=== PATIENT | female | born 1990 | race Caucasian/White ===

== ENCOUNTER 2019-02-05 06:10 | Inpatient (IN) | payer OTHER ==
[~2019-02-05] VITALS: Ht 160 cm; Wt 69.9 kg
[2019-02-05 06:39] VITALS: BP 119/71; PULSE 74; RESP 18
[2019-02-05] MEDS ORDERED: FERR134T PO (06:41)
[2019-02-05] MEDS ORDERED: CEFAZOLIN 2 GM/50 ML (PMX) 50 ML IVPB SCH (07:00)
[2019-02-05] MEDS ORDERED: OXYTOCIN 30 UNITS/LR 500 ML IV PRN ×2 (07:00→10:00)
[2019-02-05] MEDS ORDERED: OXYTOCIN 30 UNITS/LR 500 ML IV SCH ×2 (07:00→09:32)
[2019-02-05] MEDS ORDERED: CARBOPROST 250 MCG INJ IM PRN ×2 (07:00→10:00)
[2019-02-05] MEDS ORDERED: MISOPROSTOL 200 MCG TAB PR PRN ×2 (07:00→10:00)
[2019-02-05] MEDS ORDERED: METHYLERGONOVINE 0.2 MG INJ IM PRN ×2 (07:00→10:00)
[2019-02-05] MEDS: LACTATED RINGER'S 1,000 ML IV SCH ×2 (07:18→14:45)
--- NOTE | 2019-02-05 07:31 | PREAC ---
Date/Time of Note Date/Time of Note DATE: 02/05/19 TIME: 07:31 Anesthesia Eval and Record Evaluation Time Pre-Procedure Interview DATE: 02/05/19 TIME: 07:31 Age 28 Sex female NPO: 8 hrs Preoperative diagnosis Planned procedure repeat c/s Past Medical History Past Medical History: Includes GI: Obesity Surgery & Anesthesia Issues No known issue Meds Anticoagulation: No Beta Luis A within 24 hr: No Reason Beta Luis A not given: Pt. not on B-Luis A Reported Medications Ferrous Sulfate (Iron) 134 Mg Tablet, 134 MG PO DAILY, TAB 02/05/19 Current Medications Lactated Ringer's 1,000 ml @ 125 mls/hr Q8H IV Last administered on 02/05/19at 07:18; Admin Dose 125 MLS/HR; Start 02/05/19 at 06:45 Cefazolin Sodium/ Dextrose 50 ml @ 100 mls/hr ONCE IVPB ; Start 02/05/19 at 07:00 Oxytocin/Lactated Ringer's 500 ml @ 125 mls/hr POST IV ; Start 02/05/19 at 07:00 Oxytocin/Lactated Ringer's 500 ml @ 0 mls/hr ONCE PRN IV .VAGINAL BLEEDING; Start 02/05/19 at 07:00 Methylergonovine Maleate (Methergine) 0.2 mg ONCE PRN IM .VAGINAL BLEEDING; Start 02/05/19 at 07:00 Carboprost Tromethamine (Hemabate) 250 mcg ONCE PRN IM .VAGINAL BLEEDING; Start 02/05/19 at 07:00 Misoprostol (Cytotec) 1,000 mcg ONCE PRN AR .VAGINAL BLEEDING; Start 02/05/19 at 07:00 Meds reviewed: Yes Allergies Coded Allergies: No Known Allergy (Unverified , 02/05/19) Allergies Reviewed: Yes Labs/Studies Labs Reviewed: Reviewed by anesthesiologist Result Diagram: 02/05/19 0649 Laboratory Tests 02/05/19 06:49 test: Positive Pre-procedure Exam Last vitals Vital Signs Date Temp Pulse Resp B/P (MAP) Pulse Ox O2 O2 Flow FiO2 Time Delivery Rate 02/05/19 98.2 74 18 119/71 Room Air 06:39 (87) Airway: Adequate mouth opening, Adequate thyromental dist Mallampati: Mallampati II Teeth: Normal Lung: Normal Heart: Normal ASA Physical Status ASA physical status: 2 Emergency: None Planned Anesthetic Neuraxial: Spinal Planned Pain Management Sub-arachniod narcotics Pre-operative Attestations Prior to commencing anesthesia and surgery, the patient was re-evaluated, there was verification of: *The patient's identity *The results of appropriate recent lab work and preoperative vital signs *The above evaluation not changing prior to induction *Anesthetic plan, risk benefits, alternative and complications discussed with patient/family; questions answered; patient/family understands, accepts and wishes to proceed. SEAN GRANADO Feb 05, 2019 07:31
[2019-02-05] MEDS ORDERED: morphine SULFATE/PF (10 MG/10 ML) INJ ONE (07:45)
[2019-02-05] MEDS ORDERED: PHENYLephrine (100 MCG/ML) 10ML SYG ONE (07:54)
--- NOTE | 2019-02-05 07:54 | PREOPHP ---
DATE OF ADMISSION: 02/05/2019 HISTORY OF PRESENT ILLNESS: This is a 28-year-old lady, 2, para 1, EDC 02/12/2019 at 39 week s , admitted to labor and delivery area for repeat . She has one previous and she desires to have repeat . She had care in my [place] office and the prenat al care was uneventful. PAST PERSONAL HISTORY: No history of diabetes, TB, asthma. ALLERGIES: NO ALLERGIES. SOCIAL HISTORY: The patient does not smoke. She does not drink. MEDICATIONS: She does not take any drugs except her iron and vitamins. GYNECOLOGIC HISTORY: She had menarche at the age of 17, every 28 days interval, 3 to 4 days' duratio n, and moderate in amount. FAMILY HISTORY: Noncontributory. OBSTETRICAL HISTORY: She is 2, para 1. Her first delivery was in 2016 by . REVIEW OF SYSTEMS: CARDIOVASCULAR: No chest pains. RESPIRATORY: No cough. GASTROINTESTINAL: No diarrhea, no vomiting. GENITOURINARY: No dysuria. PHYSICAL EXAMINATION: GENERAL: Reveals a conscious, coherent lady and in no acute distress. VITAL SIGNS: Her blood pressure 110/20/70, pulse rate 80 per minute, respirations 16 per minute. BREASTS, HEART AND LUNGS: Within normal limits. ABDOMEN: Term size uterus. Estimated weight about 7 pounds. Fundic height 37 cm. hear t tones 140 per minute. PELVIC: Revealed the cervix to be closed, station floating in cephalic presentation with the bag of water intact. EXTREMITIES: No pedal edema. ADMITTING DIAGNOSIS: 39 weeks' intrauterine , with one previous section. The marlene ent discharged to have a repeat . The procedures were explained to the patient and she unde rstood everything totally. The risks, benefits, and alternatives were discussed with her as well. Dictated By: FELIX WALDEN MD NS/NTS Conf#: [id number] DID#: [id number] CC: FELIX WALDEN MD;*EndCC*
[2019-02-05] MEDS ORDERED: DIPHENHYDRAMINE 50 MG INJ IV PRN ×2 (08:00)
[2019-02-05] MEDS ORDERED: HYDROmorphONE 1 MG/5 ML IV SYRINGE IV PRN ×3 (08:00)
[2019-02-05] MEDS ORDERED: HYDROmorphONE 0.5 MG/0.5 ML SYG IV PRN ×2 (08:00)
[2019-02-05] MEDS ORDERED: METOCLOPRAMIDE 10 MG INJ IV PRN (08:00)
[2019-02-05] MEDS ORDERED: KETOROLAC 30 MG INJ IV PRN (08:00)
[2019-02-05] MEDS ORDERED: ONDANSETRON 4 MG INJ IV PRN ×2 (08:00)
[2019-02-05] MEDS ORDERED: FENTAnyl 50 MCG/ML VIAL IV PRN ×2 (08:00)
[2019-02-05] MEDS ORDERED: NALOXONE (0.4 MG/ML) INJ IV PRN (08:00)
[2019-02-05] MEDS ORDERED: ALBUTEROL 0.083% (NEB) 2.5 MG/3 ML AMP HHN PRN (08:00)
[2019-02-05] MEDS ORDERED: LACTATED RINGER'S 1,000 ML IV SCH (09:32)
--- NOTE | 2019-02-05 09:32 | OPPN ---
Date/Time of Note Date/Time of Note DATE: 02/05/19 TIME: 09:31 Operative Report Planned Procedure Procedure date Feb 05, 2019 Procedure(s) REPEAT CSECTION Performed by see signature line Equal Opportunity Specialist: MARCO MERLOS MD 2nd Equal Opportunity Specialist none Pre-procedure diagnosis 39 WEEKS IUP WITH PREVIOUS CSECTION [id number] Anesthesia Type: [id number] spinal Post-Procedure Post-procedure diagnosis 39 WEEKS IUP WITH PREVIOUS CSECTION Findings Live Baby GIRL, Apgars 9and 9, weight 7LBS 3180 GRAMS Estimated Blood Loss: 500 - 600 mls Specimen(s) none Grafts/Implant(s) PLACENTA Complication(s) none FELIX WALDEN MD Feb 05, 2019 09:32
[2019-02-05] MEDS ORDERED: LANOLIN HPA 1 PKT TOP PRN (10:00)
[2019-02-05] MEDS ORDERED: METHYLERGONOVINE 0.2 MG TAB PO PRN (10:00)
[2019-02-05] MEDS: KETOROLAC 30 MG INJ IV PRN ×2 (11:06→18:01)
--- NOTE | 2019-02-05 11:06 | PAC ---
Date/Time of Note Date/Time of Note DATE: 02/05/19 TIME: 11:06 Post-Anesthesia Notes Post-Anesthesia Note Last documented vital signs Vital Signs Date Temp Pulse Resp B/P (MAP) Pulse Ox O2 O2 Flow FiO2 Time Delivery Rate 02/05/19 98.2 74 18 119/71 Room Air 06:39 (87) Activity: WNL Respiratory function: WNL Cardiovascular function: WNL Mental status: Baseline Pain reasonably controlled: Yes Hydration appropriate: Yes Nausea/Vomiting absent: Yes SEAN GRANADO Feb 05, 2019 11:06
[2019-02-05 14:50] VITALS: BP 120/60; PULSE 72; RESP 16
[2019-02-05 15:20] VITALS: BP 113/65; PULSE 90; RESP 16
[2019-02-05 19:40] VITALS: BP 101/57; PULSE 76; RESP 18
[2019-02-05] MEDS: SENNA/DOCUSATE NA (8.6MG/50MG) TAB PO SCH (21:36)
[2019-02-06] MEDS: KETOROLAC 30 MG INJ IV PRN ×2 (00:04→06:12)
[2019-02-06 00:10] VITALS: BP 112/62; PULSE 72; RESP 18
[2019-02-06] MEDS: LACTATED RINGER'S 1,000 ML IV SCH ×2 (03:44→06:45)
[2019-02-06 03:50] VITALS: BP 107/57; PULSE 83; RESP 18
[2019-02-06 08:30] VITALS: BP 105/57; PULSE 87; RESP 18
[2019-02-06] MEDS: HYDROCODONE/APAP (5/325) TAB PO PRN ×4 (09:00→21:08)
[2019-02-06] MEDS: SENNA/DOCUSATE NA (8.6MG/50MG) TAB PO SCH ×2 (09:01→20:18)
[2019-02-06] MEDS: IBUPROFEN 800 MG TAB PO PRN (13:02)
[2019-02-06 15:50] VITALS: BP 99/61; PULSE 86; RESP 16
[2019-02-06 20:18] VITALS: BP 98/57; PULSE 97; RESP 18
--- NOTE | 2019-02-06 20:37 | PN ---
Date/Time of Note Date/Time of Note DATE: 02/06/19 TIME: 20:35 Assessment/Plan VTE Prophylaxis Risk score (from Nsg)>0 risk: 3 SCD applied (from Nsg): Yes Pharmacological prophylaxis: NA/contraindicated Pharm contraindication: low risk/ambulating Lines/Catheters IV Catheter Type (from Nrs): Peripheral IV Assessment/Plan Assessment/Plan POSTCSECTION DAY 1 ORDERED ADVANCE DIET TOLERATED CBC ON 3RD POSTOP DAY Result Diagram: 02/06/19 0706 02/06/19 0706 Results 24hrs Laboratory Tests Test 02/06/19 06:19 02/06/19 07:06 Lab Scanned Report REFERENCE LAB White Blood Count 5.7 Red Blood Count 3.45 L Hemoglobin 10.5 L Hematocrit 32.0 L Mean Corpuscular Volume 92.8 Mean Corpuscular Hemoglobin 30.4 Mean Corpuscular Hemoglobin Concent 32.8 Red Cell Distribution Width 13.5 Platelet Count 145 # Mean Platelet Volume 10.0 Immature Granulocytes % 0.400 Neutrophils % 71.9 Lymphocytes % 20.8 Monocytes % 6.3 Eosinophils % 0.4 Basophils % 0.2 Nucleated Red Blood Cells % 0.0 Immature Granulocytes # 0.020 Neutrophils # 4.1 Lymphocytes # 1.2 Monocytes # 0.4 Eosinophils # 0.0 Basophils # 0.0 Nucleated Red Blood Cells # 0.0 Sodium Level 137 Potassium Level 3.7 Chloride Level 109 Carbon Dioxide Level 22 Anion Gap 6 Blood Urea Nitrogen 3 L Creatinine 0.33 L Est Glomerular Filtrat Rate mL/min > 60 Glucose Level 64 L Calcium Level 8.4 Subjective 24 Hr Interval Summary Free Text/Dictation POST CSECTION DAY 1 COMPLAIN OF INCISIONAL PAINS GOOD URINE OUTPUT PASSING GAS PER RECTUM NO BOWEL MOVEMENT YET Exam/Review of Systems Exam Vitals Vital Signs Date Temp Pulse Resp B/P (MAP) Pulse Ox O2 O2 Flow FiO2 Time Delivery Rate 02/06/19 98.6 86 16 99/61 (74) 15:50 02/06/19 Room Air 08:30 02/06/19 97 03:50 Intake and Output 02/05/19 02/05/19 02/06/19 1515:00 23:00 07:00 IntakeIntake Total 1500 ml 930 ml 800 ml OutputOutput Total 2000 ml 900 ml 900 ml BalanceBalance -500 ml 30 ml -100 ml Exam VITAL SIGNS STABLE: YES AFEBRILE: YES BREAST NOT ENGORGED, NON-TENDER, NO APPRECIABLE MASS: YES LUNGS CLEAR, NO RALES, WHEEZES, RHONCHI: YES SINUS RHYTHM WITHOUT MURMUR: YES ABDOMEN: NON-TENDER FUNDUS: BELOW UMBILICUS BOWEL SOUNDS: PRESENT UTERUS: FIRM INCISION (CLEAN, DRY, AND INTACT): YES LOCHIA: LIGHT DEEP TENDON REFLEXES: 0 EXTREMITIES: NO CALF TENDERNESS EDEMA SCALE: NONE Results Results 24hrs Laboratory Tests Test 02/06/19 06:19 02/06/19 07:06 Lab Scanned Report REFERENCE LAB White Blood Count 5.7 Red Blood Count 3.45 L Hemoglobin 10.5 L Hematocrit 32.0 L Mean Corpuscular Volume 92.8 Mean Corpuscular Hemoglobin 30.4 Mean Corpuscular Hemoglobin Concent 32.8 Red Cell Distribution Width 13.5 Platelet Count 145 # Mean Platelet Volume 10.0 Immature Granulocytes % 0.400 Neutrophils % 71.9 Lymphocytes % 20.8 Monocytes % 6.3 Eosinophils % 0.4 Basophils % 0.2 Nucleated Red Blood Cells % 0.0 Immature Granulocytes # 0.020 Neutrophils # 4.1 Lymphocytes # 1.2 Monocytes # 0.4 Eosinophils # 0.0 Basophils # 0.0 Nucleated Red Blood Cells # 0.0 Sodium Level 137 Potassium Level 3.7 Chloride Level 109 Carbon Dioxide Level 22 Anion Gap 6 Blood Urea Nitrogen 3 L Creatinine 0.33 L Est Glomerular Filtrat Rate mL/min > 60 Glucose Level 64 L Calcium Level 8.4 Medications Medication Current Medications Oxytocin/Lactated Ringer's 500 ml @ 0 mls/hr ONCE PRN IV .VAGINAL BLEEDING; Start 02/05/19 at 07:00 Carboprost Tromethamine (Hemabate) 250 mcg ONCE PRN IM .VAGINAL BLEEDING; Start 02/05/19 at 07:00 Methylergonovine Maleate (Methergine) 0.2 mg Q6H PRN PO .VAGINAL BLEEDING; Start 02/05/19 at 10:00 Acetaminophen/ Hydrocodone Bitart ([place] (5/325)) 1 tab Q4H PRN PO .PAIN 4-6 Last administered on 02/06/19at 13:04; Admin Dose 1 TAB; Start 02/05/19 at 10:00 Acetaminophen/ Hydrocodone Bitart ([place] (5/325)) 2 tab Q4H PRN PO .PAIN 7-10 Last administered on 02/06/19 17:39; Admin Dose 2 TAB; Start 02/05/19 at 10:00 Ibuprofen (Motrin) 800 mg Q8 PRN PO MILD PAIN LEVEL 1-3 Last administered on 02/06/19 13:02; Admin Dose 800 MG; Start 02/05/19 at 10:00 Simethicone (Mylicon) 160 mg Q8H PRN PO .GAS Last administered on 02/06/19 20:18; Admin Dose 160 MG; Start 02/05/19 at 10:00 Senna/Docusate Sodium (Senokot-S) 1 tab BID PO Last administered on 02/06/19 20:18; Admin Dose 1 TAB; Start 02/05/19 at 21:00 Lanolin (Lanolin Hpa) 1 applic BEDSIDE MEDICATION PRN TOP .NIPPLES Last administered on 02/06/19 17:38; Admin Dose 1 APPLIC; Start 02/05/19 at 10:00 Diphtheria/ Tetanus/Acell Pertussis (Adacel) 0.5 ml ONCE ONCE IM* ; Start 02/08/19 at 09:00; Stop 02/08/19 at 09:01 Measles/Mumps/ Rubella Vaccine Live (Mmr Ii Vaccine) 0.5 ml ONCE ONCE SC* ; Start 02/08/19 at 09:00; Stop 02/08/19 at 09:01 Oxytocin/Lactated Ringer's 500 ml @ 0 mls/hr ONCE PRN IV .VAGINAL BLEEDING; Start 02/05/19 at 10:00 Methylergonovine Maleate (Methergine) 0.2 mg ONCE PRN IM .VAGINAL BLEEDING; Start 02/05/19 at 10:00 Misoprostol (Cytotec) 1,000 mcg ONCE PRN ME .VAGINAL BLEEDING; Start 02/05/19 at 10:00 Magnesium Hydroxide (Milk Of Mag) 30 ml Q12 PO ; Start 02/07/19 at 06:00; Stop 02/07/19 at 18:01 Bisacodyl (Dulcolax Supp) 10 mg Q12 ME ; Start 02/07/19 at 06:00; Stop 02/07/19 at 18:01 FELIX WALDEN MD Feb 06, 2019 20:37
[2019-02-07 04:00] VITALS: BP 101/62; PULSE 87; RESP 19
[2019-02-07] MEDS: HYDROCODONE/APAP (5/325) TAB PO PRN ×3 (04:04→17:10)
[2019-02-07] MEDS: IBUPROFEN 800 MG TAB PO PRN ×3 (04:04→21:50)
[2019-02-07] MEDS ORDERED: MAGNESIUM HYDROXIDE 30ML CUP PO SCH (06:00)
[2019-02-07] MEDS ORDERED: BISACODYL 10 MG SUPP PR SCH (06:00)
--- NOTE | 2019-02-07 07:40 | OPR ---
DATE OF OPERATION: 02/05/2019 PREOPERATIVE DIAGNOSIS: 39 weeks' intrauterine . The patient desires a repeat ; p revious section. POSTOPERATIVE DIAGNOSIS: 39 weeks' intrauterine . The patient desires a repeat ; previous section. OPERATION PERFORMED: Repeat low transverse section. SURGEON: Rhea Del Cid MD WARDROBE MANAGER: Dr. Carter ANESTHESIA: Spinal. OPERATIVE TECHNIQUE: Under spinal anesthesia, the patient was prepped and draped in the usual fashio n for abdominal surgery. After checking for the effect of the anesthesia, the previous Pfannenstiel scar was excised, a 10 cm skin incision was performed. The incision was carried from the skin up to the fascia. Upon opening the skin up to the fascia, small blood vessels were noted to be oozing and these were all cauterized. Fascia was opened transversely followed by splitting the muscles vertical and the peritoneum vertically. Upon opening the abdominal cavity, the bladder blade was put in plac e. A small hal was performed from the serosa up to the endometrium on the lower uterine segment and the hal was carried sideways with the aid of my 2 fingers. My left hand was inserted in the lower segment of the uterus and the bag of water was ruptured. Clear fluid was noted. Baby's head was del ivered with good fundal pressure. The baby's airway was quickly suctioned of amniotic fluid. The an terior shoulder, posterior shoulder, and rest of the body of the baby was delivered. Baby's cord was clamped after 30 seconds and baby was handed to the respiratory and NICU team. The placenta was del ivered manually and complete. The uterus was exteriorized. The uterus was cleansed with wet lap spo nge to make sure that no membranes were left behind. After correct sponge count, the uterus wa s closed in the usual fashion using #1 chromic for the first layer, continuous locking suture was use d followed by #1 chromic for the second layer, imbricating sutures were used. Bleeders were checked, and there was no bleeding noted. After checking for any bleeders in which there were none, both tub es and ovaries were inspected. They were healthy looking. The broad ligament was checked for any he matoma and there was none noted. Then the uterus was put back to the pelvic cavity. Once again, [place] rine incision was checked for any bleeders and there was no bleeding noted. After correct sponge cou nt, needle count and instrument count as confirmed by the field technician and methods analyst, the abdomen was closed in the usual fashion using 0 Vicryl for the peritoneum, 0 Vicryl for the muscles, for the fasc ia 0 Vicryl continuous stitch was used followed by few [id number] sutures for the subcutaneous t issue, it was closed with 3-0 Vicryl and the skin was closed with 3-0 Vicryl subcuticular suture was used. The patient tolerated the procedure well. Estimated blood loss about 700 mL. Vital signs wer e stable during and after the procedure. She delivered a healthy baby girl, Apgars 8 and 9 at 8:11 a .m. 02/05/2019, weighing 7 pounds, 3180 grams, 20 inches long. Dictated By: RHEA DEL CID MD NS/NTS Conf#: [id number] DID#: [id number] CC: RHEA DEL CID MD;*EndCC*
[2019-02-07 08:50] VITALS: BP 95/52; PULSE 77; RESP 18
[2019-02-07] MEDS: SENNA/DOCUSATE NA (8.6MG/50MG) TAB PO SCH ×2 (09:55→20:51)
[2019-02-07 16:30] VITALS: BP 106/54; PULSE 82; RESP 16
--- NOTE | 2019-02-07 18:54 | PN ---
Date/Time of Note Date/Time of Note DATE: 02/07/19 TIME: 18:52 Assessment/Plan VTE Prophylaxis Risk score (from Nsg)>0 risk: 3 SCD applied (from Nsg): No SCD contraindicated: low risk/ambulating Pharmacological prophylaxis: NA/contraindicated Pharm contraindication: low risk/ambulating Lines/Catheters IV Catheter Type (from Nrsg): Peripheral IV Assessment/Plan Assessment/Plan POST CSECTION DAY 2 HOME TOMORROW CBC TOMORROW COUNSELED INSTRUCTED PRESCRIPTION GIVEN FOR PAIN RETURN TO CLINIC IN 2 WEEKS CALL OFFICE IF THERE IS ANY PROBLEM OR CONCERN CONTINUE WITH VITAMINS OD AND FERROUS SULFATE 325MG PO TID DIET ADVISED Result Diagram: 02/06/1970502/06/19705 Subjective 24 Hr Interval Summary Free Text/Dictation POST CSECTION DAY 2 LITTLE BOWEL MOVEMENT GOOD URINE OUTPUT FEELS LESS INCISIONAL PAINS Exam/Review of Systems Exam Vitals Vital Signs Date Temp Pulse Resp B/P (MAP) Pulse Ox O2 O2 Flow FiO2 Time Delivery Rate 02/07/19 99.0 82 16 106/54 16:30 (71) 02/07/19 Room Air 08:50 02/06/19 97 03:50 Intake and Output 02/06/19 02/06/19 02/07/19 1515:00 23:00 07:00 IntakeIntake Total 900 ml OutputOutput Total 1850 ml BalanceBalance -950 ml Exam VITAL SIGNS STABLE: YES AFEBRILE: YES BREAST NOT ENGORGED, NON-TENDER, NO APPRECIABLE MASS: YES LUNGS CLEAR, NO RALES, WHEEZES, RHONCHI: YES SINUS RHYTHM WITHOUT MURMUR: YES ABDOMEN: NON-TENDER FUNDUS: BELOW UMBILICUS BOWEL SOUNDS: PRESENT UTERUS: FIRM INCISION (CLEAN, DRY, AND INTACT): YES LOCHIA: LIGHT DEEP TENDON REFLEXES: 0 EXTREMITIES: NO CALF TENDERNESS EDEMA SCALE: NONE Medications Medication Current Medications Oxytocin/Lactated Ringer's 500 ml @ 0 mls/hr ONCE PRN IV .VAGINAL BLEEDING; Start 02/05/19 at 07:00 Carboprost Tromethamine (Hemabate) 250 mcg ONCE PRN IM .VAGINAL BLEEDING; Start 02/05/19 at 07:00 Methylergonovine Maleate (Methergine) 0.2 mg Q6H PRN PO .VAGINAL BLEEDING; Start 02/05/19 at 10:00 Acetaminophen/ Hydrocodone Bitart ([place] (5/325)) 1 tab Q4H PRN PO .PAIN 4-6 Last administered on 02/07/19 17:10; Admin Dose 1 TAB; Start 02/05/19 at 10:00 Acetaminophen/ Hydrocodone Bitart ([place] (5/325)) 2 tab Q4H PRN PO .PAIN 7-10 Last administered on 02/07/19 11:57; Admin Dose 2 TAB; Start 02/05/19 at 10:00 Ibuprofen (Motrin) 800 mg Q8 PRN PO MILD PAIN LEVEL 1-3 Last administered on 02/07/19 11:56; Admin Dose 800 MG; Start 02/05/19 at 10:00 Simethicone (Mylicon) 160 mg Q8H PRN PO .GAS Last administered on 02/06/19 20:18; Admin Dose 160 MG; Start 02/05/19 at 10:00 Senna/Docusate Sodium (Senokot-S) 1 tab BID PO Last administered on 02/07/19 09:55; Admin Dose 1 TAB; Start 02/05/19 at 21:00 Lanolin (Lanolin Hpa) 1 applic BEDSIDE MEDICATION PRN TOP .NIPPLES Last administered on 02/06/19 17:38; Admin Dose 1 APPLIC; Start 02/05/19 at 10:00 Diphtheria/ Tetanus/Acell Pertussis (Adacel) 0.5 ml ONCE ONCE IM* ; Start 02/08/19 at 09:00; Stop 02/08/19 at 09:01 Measles/Mumps/ Rubella Vaccine Live (Mmr Ii Vaccine) 0.5 ml ONCE ONCE SC* ; Start 02/08/19 at 09:00; Stop 02/08/19 at 09:01 Oxytocin/Lactated Ringer's 500 ml @ 0 mls/hr ONCE PRN IV .VAGINAL BLEEDING; Start 02/05/19 at 10:00 Methylergonovine Maleate (Methergine) 0.2 mg ONCE PRN IM .VAGINAL BLEEDING; Start 02/05/19 at 10:00 Misoprostol (Cytotec) 1,000 mcg ONCE PRN [place] .VAGINAL BLEEDING; Start 02/05/19 at 10:00 FELIX WALDEN MD Feb 07, 2019 18:54
[2019-02-07 19:55] VITALS: BP 109/62; PULSE 80; RESP 19
[2019-02-08 03:50] VITALS: BP 101/59; PULSE 77; RESP 17
[2019-02-08 08:00] VITALS: BP 113/75; PULSE 83; RESP 18
[2019-02-08] MEDS: SENNA/DOCUSATE NA (8.6MG/50MG) TAB PO SCH (08:22)
[2019-02-08] MEDS: HYDROCODONE/APAP (5/325) TAB PO PRN ×2 (08:23→14:44)
[2019-02-08] MEDS ORDERED: DIPHTH/TET/ACEL PERTUSS (ADULT) 0.5 ML VIAL IM* ONE (09:00)
[2019-02-08] MEDS ORDERED: MEASLES,MUMPS,RUBELLA VACCINE INJ SC* ONE (09:00)
--- NOTE | 2019-02-09 12:35 | CONS ---
Consultation Date/Type/Reason Admit Date/Time Feb 05, 2019 at 06:10 Initial Consult Date 02/06/19 Type of Consult anesthesiology Reason for Consultation follow up Date/Time of Note DATE: 02/09/19 TIME: 12:33 24 HR Interval Summary Free Text/Dictation pt seen and examined at bedside on 02/06/19 POD#1 s/p repeat c/s. Pt received spinal duramorph for post op pain control. No N/V/MCKEON. Exam/Review of Systems Exam Vitals Vital Signs Date Temp Pulse Resp B/P (MAP) Pulse Ox O2 O2 Flow FiO2 Time Delivery Rate 02/08/19 97.8 83 18 113/75 Room Air 08:00 (88) 02/06/19 97 03:50 Results Result Diagram: 02/08/19 0642 02/06/19 0706 SENA GRANADO Feb 09, 2019 12:35
--- NOTE | 2019-02-15 11:22 | DELSUM ---
Delivery Summary A-C Datetime Report Generated by CPN: 02/15/2019 11:20 DELIVERY PERSONNEL Epic Prelude Analyst: Yonathan, Maryjane MATERNAL INFORMATION Delivery Anesthesia: Spinal Medications in Delivery: PITOCIN AND ANCEF Delivery QBL (ml): 600 Placenta Cultured: No Maternal Complications: None LABOR SUMMARY EDC: 02/12/2019 00:00 No. Babies in Womb: 1 Attempted: No Labor Anesthesia: Intrathecal LABOR INFORMATION Reason for Induction: Not Applicable Oxytocin: N/A Group B Beta Strep: Negative Antibiotics # of Doses: Ancef 2 gm x1 Steroids Given: None Reason Steroids Not Administered: Not Applicable MEMBRANES Membranes Rupture Method: Artificial Rupture of Membranes: 02/05/2019 08:10 Length of Rupture (hr): 0.02 Amniotic Fluid Color: Clear Amniotic Fluid Amount: Moderate Amniotic Fluid Odor: None STAGES OF LABOR Stage 3 hr: 0 Stage 3 min: 1 CSECTION DELIVERY Primary Indication: Repeat Elective CSection Urgency: Elective CSection Incidence: Repeat Labor: No Labor Elective: Elective CSection Incision: Lower Uterine Transverse BABY A INFORMATION Delivery Date/Time: 02/05/2019 08:11 Method of Delivery: Born in Route : No : N/A Forceps: N/A Vacuum Extraction: N/A Shoulder Dystocia : N/A SHOULDER DYSTOCIA BABY A Delivery Date/Time: 02/05/2019 08:11 PRESENTATION/POSITION BABY A Presentation: Cephalic Cephalic Presentation: Vertex Vertex Position: Left Occipital Anterior Breech Presentation: N/A PLACENTA INFORMATION BABY A Placenta Delivery Time : 02/05/2019 08:12 Placenta Method of Delivery: Manual Removal Placenta Status: Delivered SCORES BABY A Heart Rate 1 min: Slow, Below 100 bpm Resp Effort 1 min: Good Cry Reflex Irritability 1 min: Cough/Sneeze/Pulls Away Muscle Tone 1 min: Active Motion Color 1 min: Body [place], Extremit Blue Resuscitation Effort 1 min: Tactile Stimulation SCORE 1 MIN: 8 Heart Rate 5 min: >100 bpm Resp Effort 5 min: Good Cry Reflex Irritability 5 min: Cough/Sneeze/Pulls Away Muscle Tone 5 min: Active Motion Color 5 min: Body [place], Extremit Blue Resuscitation Effort 5 min: Tactile Stimulation SCORE 5 MIN: 9 INFORMATION BABY A Gestational Age at Delivery: 39.0 Gestational Status: Full Term- 39- 40.6 Weeks Infant Outcome : Liveborn Condition : Stable Sex: Female IDENTIFICATION/MEDS BABY A ID Band Number: [id number] ID Band Location: Right Leg; Left Arm Sensor Applied: Yes Sensor Number: [id number] Sensor Location : Cord Clamp Vitamin K Given : Left Thigh Erythromycin Given: Given Both Eyes WEIGHT/LENGTH BABY A Birthweight (gm): 3180 Weight (lb): 7 Weight (oz): 0 Length (in): 20.00 Length (cm): 50.80 CORD INFORMATION BABY A No. Cord Vessels: 3 Nuchal Cord : N/A Cord Blood Taken: Yes Infant Suction: Mouth; Nose ASSESSMENT BABY A Infant Complications: None Physical Findings at Delivery: Within Normal Limits Infant Respirations: Appears Normal Retail Pricing Coordinator/ALS Called : No Infant Care By: Viktoriya Transferred To: Remains with Mother
== END 2019-02-08 16:45 | disposition home or self-care (01) | DRG 788 ==
LOC: L-D 06:10 → PP1 14:55
PROVIDERS: ADMIT Obstetrics & Gynecology; ATTEND Obstetrics & Gynecology
PROC: 10D00Z1 Extraction of Products of Conception, Low, Open Approach (ICD-10-PCS; principal; 2019-02-05 07:30)
DX: O34.219 Maternal care for unspecified type scar from previous cesarean delivery (principal); G89.18 Other acute postprocedural pain; Z3A.39 39 weeks gestation of pregnancy; Z37.0 Single live birth
CPT/HCPCS: 80048; 85025; 85610; 85730; 86592; 86850; 86900; 86901; 87340; 99464; J0690; J1170; J1885; J2274; J2370; J2590; J7120